=== PATIENT | female | born 1980 | race Caucasian/White ===

== ENCOUNTER → 2016-07-17 | Outpatient (CLI) | payer OTHER ==
[~2016-07-17] MED LIST: FAMO20TA11 PO; MTR800 PO; OXYC-57 PO; PRENTAB26 PO
== END | disposition home or self-care (01) ==
LOC: C.LAB1850 09:27
PROVIDERS: ATTEND Obstetrics & Gynecology
DX: O28.1 Abnormal biochemical finding on antenatal screening of mother (principal)

== ENCOUNTER → 2016-09-14 | Outpatient (CLI) | payer OTHER ==
[2016-09-14 12:41] LABS: URINE APPEARANCE CLEAR (CLEAR); URINE BILIRUBIN NEG (NEG); URINE COLOR YELLOW; URINE EPITHELIAL CELL AUTO 20-30 /lpf (0-5); URINE NITRITE NEG (NEG); URINE SPECIFIC GRAVITY 1.013 (1.000-1.030); UROBILINOGEN NEG (NEG)
[2016-09-14 12:50] LABS: MANUAL MICROSCOPIC REQUIRED? NO; REVIEW REQ? NO
== END | disposition home or self-care (01) ==
LOC: C.LABSPEC 11:24
PROVIDERS: ATTEND Obstetrics & Gynecology
DX: O10.919 Unspecified pre-existing hypertension complicating pregnancy, unspecified trimester (principal); Z3A.00 Weeks of gestation of pregnancy not specified

== ENCOUNTER → 2016-09-24 | Outpatient (CLI) | payer OTHER | END | disposition home or self-care (01) | LOC: C.LAB1850 09:24 | PROVIDERS: ATTEND Obstetrics & Gynecology | DX: O10.919 Unspecified pre-existing hypertension complicating pregnancy, unspecified trimester (principal) ==

== ENCOUNTER 2016-10-18 10:14 | Outpatient (CLI) | payer OTHER ==
--- NOTE | 2016-10-18 13:52 | DIAGNOSTIC IMAGING REPORT ---
BIOPHYSICAL PROFILE ULTRASOUND HISTORY: 33 week . Hypertension. Nonreactive stress test COMPARISON STUDY: None. FINDINGS: The cervix is closed and measures 4.3 cm in length. The fetus is in a cephalic presentation. heart rate was 139 beats per minutes. femur length was 6.59 cm consistent with a 34 week and 0 day gestation. Amniotic fluid index was 16 cm. There is a posterior fundal placenta. No evidence for subchorionic hematoma. movement, tone, and breathing was identified during the examination. IMPRESSION: Biophysical profile score was 8 out of 8. Electronically signed by: Darian Jaffe M.D. 10/18/2016 1:51 PM Dictated Date/Time: 10/18/2016 1:49 PM
[2016-11-28] MEDS ORDERED: PRENTAB26 PO (21:06)
[2016-11-28] MEDS ORDERED: FAMO20TA11 PO (21:06)
== END 2016-10-18 14:20 | disposition home or self-care (01) ==
LOC: C.LD 10:14 → C.OPB 10:14
PROVIDERS: ATTEND Obstetrics & Gynecology
DX: O16.3 Unspecified maternal hypertension, third trimester (principal); O24.419 Gestational diabetes mellitus in pregnancy, unspecified control; O99.213 Obesity complicating pregnancy, third trimester; E66.9 Obesity, unspecified; Z3A.33 33 weeks gestation of pregnancy

== ENCOUNTER → 2016-11-05 | Outpatient (CLI) | payer OTHER | END | disposition home or self-care (01) | LOC: C.LABSPEC 14:29 | PROVIDERS: ATTEND Obstetrics & Gynecology | DX: O24.410 Gestational diabetes mellitus in pregnancy, diet controlled (principal); Z3A.00 Weeks of gestation of pregnancy not specified ==

== ENCOUNTER 2016-11-15 09:45 | Outpatient (CLI) | payer OTHER ==
[2016-11-28] MEDS ORDERED: FAMO20TA11 PO (21:06)
[2016-11-28] MEDS ORDERED: PRENTAB26 PO (21:06)
== END 2016-11-15 10:50 | disposition home or self-care (01) ==
LOC: C.OPB 09:45 → C.LD 09:45 → C.OPB 10:50
PROVIDERS: ATTEND Obstetrics & Gynecology
DX: O26.893 Other specified pregnancy related conditions, third trimester (principal); Z3A.38 38 weeks gestation of pregnancy

== ENCOUNTER 2016-11-29 07:54 | Inpatient (IN) | payer OTHER ==
[~2016-11-29] VITALS: Ht 165.1 cm; Wt 129.1 kg
[~2016-11-29 07:54] MED LIST changes: -MTR800 PO; -OXYC-57 PO
[2016-11-29 08:17] VITALS: Ht 165.1 cm; Wt 129.1 kg
[2016-11-29] MEDS ORDERED: LACTATED RINGER'S 1000ML 1,000 ML IV PRN (08:49)
[2016-11-29] MEDS ORDERED: LACTATED RINGER'S 1000ML 500 ML IV PRN ×2 (08:49→16:11)
[2016-11-29] MEDS ORDERED: OXYTOCIN 30 UNITS/500ML NSS IV PRN (09:00)
[2016-11-29] MEDS: LACTATED RINGER'S 1000ML 1,000 ML IV SCH ×3 (09:32→21:04)
[2016-11-29 09:41] LABS: MEAN CELL VOLUME 91.4 fL (80-100); MEAN CORPUSCULAR HEMOGLOBIN 31.3 pg (25-34); MEAN CORPUSCULAR HGB CONC 34.3 g/dl (32-36); MEAN PLATELET VOLUME 11.8 fL (7.4-10.4); PLATELET COUNT 217 K/uL (130-400); RED BLOOD COUNT 3.83 M/uL (4.2-5.4); WHITE BLOOD COUNT 15.95 K/uL (4.8-10.8)
[2016-11-29 09:55] LABS: ALB/GLOB RATIO 0.8 (0.9-2); BUN/CREATININE RATIO 13.2 (10-20); CALCIUM 8.4 mg/dl (8.5-10.1); CREATININE 0.57 mg/dl (0.60-1.20)
[2016-11-29] MEDS ORDERED: FENTANYL 2MCG/ML ROPIV 1.25MG/ML 100ML BAG EPI ONE (16:08)
[2016-11-29] MEDS ORDERED: FENTANYL CITRATE INJ 50 MCG/1 ML 2 ML VIAL ONE (16:08)
[2016-11-29] MEDS ORDERED: BUPIVACAINE 0.25% 30 ML VIAL ONE (16:08)
[2016-11-29] MEDS ORDERED: EpHEDrine SULFATE INJ 50 MG/ML AMP ONE (16:08)
[2016-11-29] MEDS ORDERED: NALOXONE HCL INJ 1 MG in SODIUM CHLORIDE 0.9% 1000ML 1,000 ML IV PRN (16:11)
[2016-11-29] MEDS ORDERED: NALOXONE HCL INJ 0.4 MG/1 ML VIAL/CARP IV PRN (16:15)
[2016-11-29] MEDS ORDERED: ONDANSETRON INJ 2 MG/ML 2 ML VIAL IV PRN (16:15)
[2016-11-29] MEDS ORDERED: DiphenhydrAMINE HCL 50 MG/ML VIAL IV PRN (16:15)
[2016-11-29] MEDS ORDERED: EpHEDrine SULFATE INJ 50 MG/ML AMP IV PRN (16:15)
[2016-11-29] MEDS ORDERED: NALBUPHINE HCL INJ 10 MG/ML AMP IV PRN (16:15)
[2016-11-29] MEDS: FENTANYL 2MCG/ML ROPIV 1.25MG/ML 100ML BAG EPI PRN (19:07)
[2016-11-29] MEDS ORDERED: TERBUTALINE SULFATE 1 MG/ML VIAL ONE (23:43)
[2016-11-30] VITALS (12 sets, daily range): BP systolic 114–131; BP diastolic 72–76; PULSE 71–83; TEMP 36.5–37.1; O2SAT 97–99
[2016-11-30] MEDS: FENTANYL 2MCG/ML ROPIV 1.25MG/ML 100ML BAG EPI PRN ×3 (00:51→08:20)
[2016-11-30] MEDS ORDERED: CEFAZOLIN IV 3,000 MG in DEXTROSE 5% 50ML 50 ML IV SCH (06:00)
[2016-11-30] MEDS: LACTATED RINGER'S 1000ML 1,000 ML IV SCH (06:04)
[2016-11-30] MEDS ORDERED: LACTATED RINGER'S 1000ML 1,000 ML IV SCH ×2 (08:31→11:06)
[2016-11-30] MEDS ORDERED: MoRPHine SULFATE PF 1 MG/ML 10 ML AMP/VIAL ONE (08:31)
[2016-11-30] MEDS ORDERED: OXYTOCIN INJ 10 UNITS/ML VIAL ONE (08:32)
[2016-11-30] MEDS ORDERED: CITRIC ACID/SODIUM CITRATE 15 ML UDC PO ONE (08:45)
[2016-11-30] MEDS ORDERED: NALOXONE HCL INJ 1 MG in SODIUM CHLORIDE 0.9% 1000ML 1,000 ML IV PRN (08:56)
[2016-11-30] MEDS ORDERED: NALOXONE HCL INJ 0.08 MG in SYRINGE 1.8 ML IV PRN (08:56)
[2016-11-30] MEDS ORDERED: LACTATED RINGER'S 1000ML 500 ML IV PRN (08:56)
[2016-11-30] MEDS ORDERED: SODIUM CHLORIDE 0.9% 1000ML 1,000 ML IV PRN (08:56)
[2016-11-30] MEDS ORDERED: NALOXONE HCL 0.4 MG/1 ML VIAL/CARP IV PRN (09:00)
[2016-11-30] MEDS ORDERED: NO NARCOTICS OR SEDATIVES SCH (09:00)
[2016-11-30] MEDS ORDERED: DC INTRASPINAL MORPHINE SCH (09:00)
[2016-11-30] MEDS ORDERED: DiphenhydrAMINE HCL 50 MG/ML VIAL IV PRN (09:00)
[2016-11-30] MEDS ORDERED: NALBUPHINE HCL INJ 10 MG/ML AMP IV PRN (09:00)
[2016-11-30] MEDS ORDERED: EpHEDrine SULFATE INJ 50 MG/ML AMP IV PRN (09:00)
[2016-11-30] MEDS ORDERED: MoRPHine SULFATE PF 1 MG/ML 10 ML AMP/VIAL EPI PRN (09:00)
[2016-11-30] MEDS ORDERED: MoRPHine SULFATE 2 MG/ML CARP IV PRN (09:00)
[2016-11-30] MEDS ORDERED: ONDANSETRON INJ 2 MG/ML 2 ML VIAL IV PRN (09:00)
[2016-11-30] MEDS ORDERED: BUPIVACAINE 0.5 % 5 MG/1 ML PF 10ML VIAL ONE (09:36)
[2016-11-30] MEDS ORDERED: ONDANSETRON INJ 2 MG/ML 2 ML VIAL ONE (10:47)
[2016-11-30] MEDS ORDERED: KETOROLAC TROMETHAMINE 30 MG/ML VIAL ONE (10:49)
[2016-11-30] MEDS ORDERED: EpHEDrine SULFATE INJ 50 MG/ML AMP ONE (10:55)
[2016-11-30] MEDS ORDERED: OXYTOCIN INJ 20 UNITS in LACTATED RINGER'S 1000ML 1,000 ML IV SCH (11:06)
[2016-11-30] MEDS ORDERED: HYDROCORTISONE ACETATE 25 MG SUPP PR PRN (11:15)
[2016-11-30] MEDS ORDERED: LANOLIN OINT EXT PRN ×2 (11:15)
[2016-11-30] MEDS ORDERED: SUPERCREAM 0.870 % 15GM JAR EXT PRN (11:15)
[2016-11-30] MEDS ORDERED: DIPHTHERIA/TETANUS/PERTUSSIS 0.5 ML SYR/VIAL IM. ONE (11:15)
[2016-11-30] MEDS ORDERED: DC PCA PRN (11:15)
--- NOTE | 2016-11-30 11:26 | Anesthesia Procedure Note ---
Anesthesia Epidural Removal Nt Date & Time Nov 30, 2016 at 11:26 Vital Signs Pain Intensity: 1.0 Notes Mental Status: alert / awake / arousable, participated in evaluation Nausea / Vomiting: adequately controlled Pain: adequately controlled Airway Patency, RR, SpO2: stable & adequate BP & HR: stable & adequate Hydration State: stable & adequate Neuraxial Anesthesia: was administered Anesthetic Complications: no major complications apparent, pt satisfied with anesthetic care Epidural: removed without complications, with tip intact
--- NOTE | 2016-11-30 11:27 | Anesthesiology Progress Note ---
Anesthesia Post Op Note Date & Time Nov 30, 2016 at 11:27 Vital Signs Pain Intensity: 1.0 Notes Mental Status: alert / awake / arousable, participated in evaluation Pt Amnestic to Procedure: Yes Nausea / Vomiting: adequately controlled Pain: adequately controlled Airway Patency, RR, SpO2: stable & adequate BP & HR: stable & adequate Hydration State: stable & adequate Anesthetic Complications: no major complications apparent
[2016-11-30] MEDS: SIMETHICONE 80 MG CHEW PO SCH ×3 (14:00→19:26)
--- NOTE | 2016-11-30 16:10 | OPERATIVE REPORT ---
DATE OF OPERATION: 11/30/2016 SURGEON: Dr. Rebeca Stallings. DIESEL POWERPLANT SUPERVISOR: Dr. Kristan Miller. PREOPERATIVE DIAGNOSES: Intrauterine at 40 weeks, chronic hypertension, nonreassuring heart rate pattern and arrest of descent and dilation. POSTOPERATIVE DIAGNOSES: Same plus delivery of a viable female infant, 5 pounds 10 ounces. PROCEDURE: Primary low transverse cervical section. BLOOD LOSS: 600 mL. ANESTHESIA: Epidural. INDICATIONS: The patient is a 36-year-old 1, para 0 white female, EDC of 11/30/2016, who presented for induction because of a history of chronic hypertension. She was to be delivered by 40 weeks' gestation. Her due date is November 30. The induction was begun with a cervical Rodriguez balloon because her cervix was unfavorable on November 29. She was then begun on Pitocin during the course of the labor. There were multiple episodes of nonreassuring heart rate patterns including late appearing decelerations and moderate variables. She received amnioinfusion to help to resolve these variables and late decelerations, but they were persisting whenever the Pitocin had been restarted. Because she was only 5 cm and not progressing beyond that point and because the Pitocin could not be increased to reach adequate contraction pattern, it was felt prudent to proceed with the low transverse cervical section. The patient agreed to this plan and all her questions were answered to her satisfaction. GROSS FINDINGS: Uterus is gravid and consistent with a term in size. Bilateral ovaries and fallopian tubes are grossly normal. Pelvis appeared to be unusually narrow. DESCRIPTION OF PROCEDURE: After the patient received adequate epidural anesthesia, she was prepped and draped in the usual sterile fashion. A low transverse skin incision was made transversely and carried to the fascia with the same scalpel. The fascial incision was then extended with Pop scissors. The underlying rectus muscles were bluntly and sharply dissected off the overlying fascia. The rectus muscles were divided along the midline and the bladder was taken down off the anterior surface of the uterus with Metzenbaum scissors and placed behind the bladder blade. The lower uterine segment was entered with the scalpel and extended transversely. There was a clear fluid upon entering the uterus. The was in the direct OP presentation. The vertex was brought up to the incision and the head was delivered with moderate fundal pressure. However, at this point, the shoulders were not delivering easily and when the anterior shoulder could not be delivered by releasing the anterior arm, the posterior arm was attempted to be released and this could not be released either. Bandage scissors were then used to increase the size of the uterine incision and moving superiorly on the uterus. At this point, the rest of the delivered. There was spontaneous crying and the infant was moving all 4 limbs upon delivery. Cord was clamped and cut and the was handed off to Dr. Mckeon, who was in attendance as precision grinder external. The placenta was then manually removed and the uterus exteriorized with clean lap sponge. There was an extension of the uterine incision on the right side towards the cervix. This was repaired with 0 Monocryl in the usual fashion and the rest the incision was then closed in a running locking imbricating fashion in 2 layers with 0 Monocryl. Uterine cavity was explored and found to be free of any placental tissue or membranes prior to closing the uterus. The hemostasis was noted to be excellent on the uterine incision. The anterior cul-de-sac was found to be very deep and narrow. There was clot and fluid in the anterior cul-de-sac. The posterior cul-de-sac was then irrigated with normal saline and the uterine incision was examined once more and found to have excellent hemostasis. The uterus was placed back inside the abdominal cavity. The gutters were found to be free of clot. There was a little bit of free blood in the left cul-de-sac, which was removed. The incisions were examined once more and found continued to have excellent hemostasis. The rectus muscles were brought together in the midline with individual stitches of 0 Monocryl. The fascia was closed in a running fashion with 0 Vicryl. After irrigating the adipose layer, the skin edges were reapproximated using a subcuticular stitch of 4-0 Vicryl. Urine was clear at the end of the case. The patient and the infant tolerated the procedure well. I attest to the content of the Intraoperative Record and any orders documented therein. Any exceptions are noted below. MTDD
[2016-11-30] MEDS: KETOROLAC TROMETHAMINE 30 MG/ML VIAL IV. PRN ×2 (17:32→23:39)
[2016-11-30] MEDS: DOCUSATE SODIUM 100 MG CAP PO SCH (19:27)
[2016-12-01 00:30] VITALS: O2SAT 98
[2016-12-01 01:30] VITALS: O2SAT 96
[2016-12-01] MEDS ORDERED: DiphenhydrAMINE HCL 50 MG/ML VIAL IV PRN (02:00)
[2016-12-01] MEDS ORDERED: MEPERIDINE HCL 50 MG/ML CARP IV PRN ×2 (02:00)
[2016-12-01] MEDS ORDERED: OXYCODONE/ACETAMINOPHEN 5-325 TAB PO PRN (02:01)
[2016-12-01] MEDS ORDERED: KETOROLAC TROMETHAMINE 30 MG/ML VIAL IV. PRN (02:01)
[2016-12-01 03:00] VITALS: BP 128/82; PULSE 81; TEMP 36.6; O2SAT 98
--- NOTE | 2016-12-01 06:36 | Progress Note ---
Subjective Dec 01, 2016. Subjective conversation w/ patient, physical exam, lab review Ambulation: ambulating normally Voiding: no voiding problems Passing Gas: Yes Diet Tolerance: Regular Diet Lochia: Small Feeding Type: Breast Feeding Pain: pain controlled with oral pain meds Objective Vital Signs Date Time Temp Pulse Resp B/P (MAP) Pulse Ox O2 Delivery O2 Flow Rate FiO2 12/01/16 03:00 36.6 81 18 128/82 (97) 98 Room Air 12/01/16 01:30 18 96 12/01/16 00:30 18 98 11/30/16 23:30 18 99 11/30/16 23:20 99 Room Air 11/30/16 23:20 36.5 83 18 114/73 (87) 99 Room Air 11/30/16 22:30 18 97 11/30/16 21:30 18 97 11/30/16 20:30 18 98 11/30/16 19:30 18 97 11/30/16 19:30 37.0 77 18 122/75 (91) 97 Room Air 11/30/16 18:30 18 98 11/30/16 17:30 18 99 11/30/16 16:30 18 99 11/30/16 15:30 18 99 11/30/16 15:30 36.8 71 18 124/76 (92) 99 Room Air 11/30/16 15:30 99 Room Air 11/30/16 14:30 18 98 11/30/16 14:30 74 18 127/72 (90) 98 Room Air 11/30/16 13:30 18 97 11/30/16 13:30 37.1 71 18 131/75 (93) 97 Room Air 11/30/16 13:30 Room Air 11/30/16 13:30 97 Room Air Physical Exam General Appearance: WELL-APPEARING, WD/WN, NO APPARENT DISTRESS Respiratory/Chest: lungs clear, normal breath sounds Abdomen: non tender, soft, + abnormal bowel sounds (decreased) Fundus: Firm, Tender (appropriate for postop), Relation to Umbilicus (below, difficult exam) Incision Description: Clean, Dry & Intact Extremities: non-tender, normal inspection, + pedal edema (trace) Laboratory Results Last 24 Hours Test 11/30/16 08:37 12/01/16 06:00 Bedside Glucose 82 mg/dl Assessment and Plan Post-, Post-Op Day#: 1 Continue Routine Care: Doing well, routine care. encourage ambulation, adat.
[2016-12-01 07:11] LABS: BASO % 0.1 %; BASO ABS # 0.02 K/uL (0-0.2); COMPLETE YES; EOS % 0.8 %; HEMATOCRIT 30.6 % (37-47); IG% 0.2 %; LYMPH ABS # 2.05 K/uL (1.2-3.4); MEAN CELL VOLUME 93.3 fL (80-100); MEAN CORPUSCULAR HEMOGLOBIN 31.7 pg (25-34); MEAN PLATELET VOLUME 12.1 fL (7.4-10.4); MONO % 6.3 %; NEUT % 78.6 %; PLATELET COUNT 169 K/uL (130-400); RED BLOOD COUNT 3.28 M/uL (4.2-5.4); WHITE BLOOD COUNT 14.61 K/uL (4.8-10.8)
[2016-12-01 07:15] VITALS: BP 128/71; PULSE 75; TEMP 37; O2SAT 95
[2016-12-01] MEDS: PRENATAL VITAMIN TAB PO SCH (07:25)
[2016-12-01] MEDS: SERTRALINE HCL 50 MG TAB PO SCH (07:25)
[2016-12-01] MEDS: SIMETHICONE 80 MG CHEW PO SCH ×4 (07:25→19:48)
[2016-12-01] MEDS: DOCUSATE SODIUM 100 MG CAP PO SCH ×2 (07:25→19:48)
[2016-12-01] MEDS: OXYCODONE/ACETAMINOPHEN 5-325 TAB PO PRN ×4 (07:25→19:49)
[2016-12-01] MEDS: IBUPROFEN 600 MG TAB PO PRN ×4 (07:26→19:49)
[2016-12-01 15:30] VITALS: BP 139/94; PULSE 71; TEMP 36.9
[2016-12-02] VITALS: BP 125/67; PULSE 68; TEMP 37.2; O2SAT 98
[2016-12-02] MEDS: IBUPROFEN 600 MG TAB PO PRN ×2 (00:11→07:30)
[2016-12-02] MEDS: OXYCODONE/ACETAMINOPHEN 5-325 TAB PO PRN ×2 (02:42→07:31)
[2016-12-02 06:22] LABS: HEMATOCRIT 31.4 % (37-47)
--- NOTE | 2016-12-02 07:14 | Progress Note ---
Subjective Dec 02, 2016. Subjective conversation w/ patient, physical exam Ambulation: ambulating normally Voiding: no voiding problems Diet Tolerance: Regular Diet Lochia: Small Feeding Type: Breast Feeding Review of Systems Constitutional: No fever, No chills, No sweats, No weight loss, No weakness, No fatigue, No problem reported Breast: No see HPI, No breast lump, No change in shape, No nipple discharge, No breast pain, No problem reported Abdomen: No pain, No nausea, No vomiting, No diarrhea, No constipation, No GI bleeding, No problem reported Female : No see HPI, No dysuria, No urinary frequency, No hematuria, No incontinence, No abnormal vaginal bleeding, No vaginal discharge, No problem reported Objective Vital Signs Date Time Temp Pulse Resp B/P (MAP) Pulse Ox O2 Delivery O2 Flow Rate FiO2 12/02/16 00:00 98 Room Air 12/02/16 00:00 37.2 68 20 125/67 (86) 98 Room Air 12/01/16 16:00 Room Air 12/01/16 15:30 36.9 71 20 139/94 (109) Room Air 12/01/16 07:15 95 Room Air 12/01/16 07:15 37.0 75 18 128/71 (90) 95 Room Air Physical Exam General Appearance: WELL-APPEARING, NO APPARENT DISTRESS Abdomen: soft Fundus: Firm, Non-Tender, Relation to Umbilicus (at U) Incision Description: Clean, Dry & Intact Extremities: no calf tenderness Laboratory Results Last 24 Hours Test 12/02/16 06:05 Hemoglobin 10.2 g/dL Hematocrit 31.4 % Assessment and Plan Post-, Post-Op Day#: 2 Continue Routine Care: stable post-op course discharge to home rx's for percocet & motrin 800mg given to patient. follow up in 6 weeks
[2016-12-02 07:15] VITALS: BP 138/85; PULSE 69; TEMP 36.9; O2SAT 98
[2016-12-02] MEDS ORDERED: IBUPROFEN 800 MG TAB PO PRN (07:30)
[2016-12-02] MEDS: SIMETHICONE 80 MG CHEW PO SCH (07:30)
[2016-12-02] MEDS: SERTRALINE HCL 50 MG TAB PO SCH (07:30)
[2016-12-02] MEDS: PRENATAL VITAMIN TAB PO SCH (07:30)
[2016-12-02] MEDS: DOCUSATE SODIUM 100 MG CAP PO SCH (07:30)
[2016-12-02] MEDS ORDERED: OXYC-57 PO (07:47)
[2016-12-02] MEDS ORDERED: MTR800 PO (07:47)
--- NOTE | 2016-12-02 07:48 | Discharge Instructions ---
Discharge Instructions Date of Service Dec 02, 2016. Admission Reason for Admission: Induction Discharge Discharge Diagnosis / Problem: recovery form section Discharge Goals Goal(s): Routine recovery after Medications Continue Dispensed Medications: lansinoh Activity Recommendations Activity Limitations: per Instructions/Follow-up section . Instructions / Follow-Up Instructions / Follow-Up ACTIVITY RECOMMENDATIONS: * Gradual return to full activity over the next 2-3 weeks. * No lifting - nothing heavier than baby over the next 2-3 weeks. * Do not engage in vigorous exercise, sexual activity or sports until cleared by your physician. * Do not drive or operate any motorized equipment until cleared by your physician. * You may shower/bathe daily. MEDICATIONS: For discomfort or pain, you may use Acetaminophen (Tylenol), Ibuprofen (Advil), or Naproxen (Aleve) following the package directions. For constipation you may use Colace following the package directions. BREAST CARE: If you are not breast feeding: * Wear a supportive bra 24 hours a day for one to two weeks. * Avoid stimulating your breasts and nipples as much as possible during the first few weeks after delivery. * When taking a shower, have the warm water hit your back, not breasts. * When your breasts feel full, apply ice packs. Usually three to four times a day helps ease the discomfort. * Take a mild pain medication (Tylenol / Motrin) when you are uncomfortable. If breast feeding: * Use breast milk to lubricate nipples. Lansinoh cream may be used for sore nipples. You do not need to remove cream prior to breast feeding. If using a different brand of cream, check the label for directions regarding removal of cream prior to nursing. * Wear a supportive bra. * If having problems with breasts or breast feeding, call a law firm consultant or your health care provider. SPECIAL CARE INSTRUCTIONS: When you are discharged from the hospital, it is important for you to follow the instructions listed below: * During the first week at home, you should be able to care for yourself and your baby. In addition, the usual light household activities are encouraged. * Limit your activities to the way you feel. Do not try to clean the house or move furniture. Be sensible. * If you actively engage in sports and have done so up until the time of your delivery, you may resume these activities as soon as you feel able. This may take up to one month or even longer. Use good judgment. * Continue to take your vitamins for at least six weeks after the of your baby. * Your diet need not be limited unless you were on a special diet before your delivery. Breast-feeding mothers need around 2500 calories per day and at least 64-80 ounces of fluid per day (8 to 10 glasses). * You should eat foods from the four major food groups. Crash diets or fad diets are to be avoided. Eating lean meats, fresh fruits and vegetables, low-fat dairy products, high fiber foods and a regular exercise program, will help you get back to your pre- weight without putting your health at risk. * Constipation is sometimes a problem after delivery. Take a mild laxative as needed. If breast feeding, Milk of Magnesia is acceptable to use. You may use a suppository or Fleets enema. * A daily shower or tub bath is suggested. Wash incision daily with warm soapy water and pat dry. It doesn't need to be covered unless drainage is present. * A bloody vaginal discharge will usually continue until around four weeks . A small amount of bleeding may continue for as long as six weeks. Vaginal discharge changes from the bright red bleeding after delivery to pink then brownish and finally yellowish-pink before becoming white and disappearing. * Bleeding may increase with activity. Your first period may come in 4-8 weeks. If you are breast feeding, your period may be delayed even longer. * [place] (sex) can begin whenever both you and your partner feel comfortable and do not have any form of genital infection. It is recommended that you wait at least six weeks for internal and external healing to occur. If you have questions, please talk to your health care practitioner. A condom should be used to prevent infection and . * Foreplay, gentle intercourse and lubrication is very important the first several times to prevent pain. A water-based lubricant such as K-Y jelly or Astroglide may be used. * If you have RH negative blood and your baby is RH positive, you will receive RHOGAM by injection prior to discharge. The nurse will give you a card to keep with you that has the date and place that you received RHOGAM after delivery. * During your care, you had a Rubella screen done to check for the presence of rubella antibodies in your blood. If your test was negative, you will receive a Rubella vaccine prior to discharge. This vaccine may cause a fever, soreness at the injection site and flu-like symptoms. If these symptoms persist, notify your health care practitioner. is not advised for one month after a Rubella vaccine. * Verbalizes understanding of car seat law as reviewed with patient nursing. * Car Seat hand-out given and reviewed with patient by nursing. * Shaken baby information reviewed with patient by nursing. Call you doctor if: * Heavy bleeding (saturating several pads an hour) or passing clots the size of your fist. * A fever >101 degrees F (38.3 degrees C) on two occasions four hours apart and /or chills. * Unusual pain in the pelvic or vaginal areas. * Call the doctor for any increased redness, drainage or swelling around the incision and any pain unrelieved by prescribed pain medication. * "Baby Blues" lasting longer than two weeks. If you have any questions or concerns, call your health care practitioner at . FOLLOW UP VISIT: * Please call the office at to schedule a 6 week examination. It is important you keep this appointment. It is important for you to make arrangements for either yearly or twice yearly check-ups thereafter. Current Hospital Diet Patient's current hospital diet: Regular OB Diet Discharge Diet Recommended Diet: Regular OB Diet Procedures Procedures Performed: Primary Low Transverse Caesarean Section Pending Studies Studies pending at discharge: no Medical Emergencies . Who to Call and When: Medical Emergencies: If at any time you feel your situation is an emergency, please call [phone] immediately. . Non-Emergent Contact Non-Emergency issues call your: Cell Feed Department Supervisor . . "Provider Documentation" section prepared by Rebeca Tapia. . VTE Core Measure Inpt VTE Proph given/why not?: Treatment not indicated
[2016-12-02 09:02] VITALS: BP_DIAS 85; PULSE 69; TEMP 36.9
--- NOTE | 2016-12-02 17:48 | DISCHARGE SUMMARY ---
PRINCIPAL DIAGNOSES: Intrauterine at 40 weeks, chronic hypertension, nonreassuring heart rate pattern and arrest of descent and dilation. PRINCIPAL PROCEDURE: Primary low transverse cervical section. HISTORY: The patient is a 36-year-old 1, para 0 white female, EDC of 11/30/2016 who presented for induction of labor because of chronic hypertension. She made slow progress following cervical balloon placement and then Pitocin because the Pitocin had to be stopped and started again because of intolerance of labor. She may progress to 5 cm, but the decelerations were becoming more frequent and persistent. Low transverse cervical section was performed with extension of the incision on the right and also required extending incision superiorly because of significant dystocia delivering the baby's shoulders. The patient had an uncomplicated postop course. She was eating a regular diet on her 1st postop day, ambulating, voiding without difficulty. She remained afebrile throughout her hospital stay. On admission her hemoglobin was 12.0, hematocrit 35.0. First postop day hemoglobin 10.4, hematocrit 30.6. Second postop day 10.2 and 31.4. She is being sent home in good condition with prescriptions for Percocet 1-2 tablets p.o. q.4 hours p.r.n. pain, 800 mg of Motrin every 8 hours as needed for pain. She is to be seen in the office in 6 weeks for followup visit. She is to call for a temperature of 101 degrees or higher, heavy vaginal bleeding, burning with urination, increased redness, drainage or pain in her incision or calf tenderness and any other concerns she might have.
== END 2016-12-02 09:35 | disposition home or self-care (01) | DRG 766 ==
LOC: C.LD 07:54 → C.OBG 11-30 13:35
PROVIDERS: ADMIT Obstetrics & Gynecology; ATTEND Obstetrics & Gynecology
PROC: 3E033VJ Introduction of Other Hormone into Peripheral Vein, Percutaneous Approach (ICD-10-PCS; principal; 2016-11-30 08:59)
PROC: 10D00Z1 Extraction of Products of Conception, Low, Open Approach (ICD-10-PCS; principal; 2016-11-30 08:59)
DX: O16.3 Unspecified maternal hypertension, third trimester (principal); O24.410 Gestational diabetes mellitus in pregnancy, diet controlled; O76 Abnormality in fetal heart rate and rhythm complicating labor and delivery; O32.4XX1 Maternal care for high head at term, fetus 1; Z3A.40 40 weeks gestation of pregnancy; Z37.0 Single live birth